=== PATIENT | female | born 1950 | race Two or more races ===

== ENCOUNTER 2019-08-06 16:37 | Emergency (ER) | payer OTHER ==
[~2019-08-06] VITALS: Ht 160 cm; Wt 104.3 kg
[~2019-08-06 16:37] MED LIST: METFORMIN HCL500 MG; TESSALON PERLE100 MG PO; TUSSI PRES-B L120 M1 PO; ZITHROMAX200 MG PO; ZITHROMAX500 MG PO
== END 2019-08-06 18:32 | disposition home or self-care (01) ==
LOC: ER 16:37
DX: L03.115 Cellulitis of right lower limb (principal)

== ENCOUNTER 2020-06-08 07:07 | Outpatient (CLI) | payer OTHER | END 2020-06-08 07:27 | disposition home or self-care (01) | LOC: LAB 07:07 → O/R 11:45 | PROVIDERS: ATTEND Specialist | DX: E11.65 Type 2 diabetes mellitus with hyperglycemia (principal); D64.89 Other specified anemias; N39.0 Urinary tract infection, site not specified; E03.8 Other specified hypothyroidism; E78.2 Mixed hyperlipidemia; Z12.11 Encounter for screening for malignant neoplasm of colon; E55.9 Vitamin D deficiency, unspecified ==

== ENCOUNTER 2020-06-08 08:42 | Outpatient (CLI) | payer OTHER | END 2020-06-08 08:51 | disposition home or self-care (01) | LOC: RAD 08:42 | PROVIDERS: ATTEND Specialist | DX: J45.998 Other asthma (principal); Z12.31 Encounter for screening mammogram for malignant neoplasm of breast ==

== ENCOUNTER 2020-06-08 10:12 | Outpatient (CLI) | payer OTHER | END 2020-06-08 10:54 | disposition home or self-care (01) | LOC: NUCLEAR 10:12 | PROVIDERS: ATTEND Specialist | DX: M81.0 Age-related osteoporosis without current pathological fracture (principal) ==